=== PATIENT | female | born 1990 ===

== ENCOUNTER 2016-09-12 21:12 | Emergency (ER) | payer MEDICAID ==
[2016-09-12 21:18] VITALS: BP 145/92; PULSE 110; RESP 21; TEMP 99.5; O2SAT 100
[2016-09-12] MEDS ORDERED: Dexamethasone 4 mg/1 ml IM STA (21:35)
[2016-09-12] MEDS ORDERED: Penicillin G Benzathine 1.2 Mill Unit/2 ml Syr IM ONE (21:36)
--- NOTE | 2016-09-12 21:38 | ED PDOC ---
HPI: CCC, URI, Sore Throat Time Seen by Provider: 09/12/16 21:22 Chief Complaint (Nursing): ENT Problem Chief Complaint (Provider): sore throat History Per: Patient History/Exam Limitations: no limitations Have you had recent travel within the past 21 days to any of the following countries: [place], [place], [place] or [place]?: No Onset/Duration Of Symptoms: Days (x 4) Current Symptoms Are (Timing): Still Present Location Of Pain: Throat, Headache Sick Contacts (Context): None Associated Symptoms: Fever, Chills, Sore Throat. denies: Cough Additional Complaint(s): Jelena Burroughs is a 26 year old female, with no previous medical history who presents to the ED with complaints of a sore throat ongoing for 3 days. Pt reports associated symptoms of fever, headache and feeling unable to breath. Pt reports to developing throat swelling yesterday. Pt denies coughing or sick contact. PMD: none provided Past Medical History Reviewed: Historical Data, Nursing Documentation, Vital Signs Vital Signs: Last Vital Signs Temp 99.5 F 09/12/16 21:14 Pulse 110 H 09/12/16 21:14 Resp 21 09/12/16 21:14 BP 145/92 H 09/12/16 21:14 Pulse Ox 100 09/12/16 21:41 - Medical History PMH: No Chronic Diseases - Family History Family History: States: Unknown Family Hx - Allergies Allergies/Adverse Reactions: Allergies Allergy/AdvReac Type Severity Reaction Status Date / Time No Known Allergies Allergy Verified 09/12/16 21:14 Review of Systems ROS Statement: Except As Marked, All Systems Reviewed And Found Negative Constitutional: Positive for: Fever, Chills ENT: Positive for: Throat Pain, Throat Swelling Respiratory: Positive for: Shortness of Breath. Negative for: Cough Physical Exam - Reviewed Nursing Documentation Reviewed: Yes Vital Signs Reviewed: Yes - Physical Exam Appears: Positive for: Well, Non-toxic, No Acute Distress Head Exam: Positive for: ATRAUMATIC, NORMAL INSPECTION, NORMOCEPHALIC ENT: Positive for: Tonsillar Exudate (bilateral ), Tonsillar Swelling ( bilateral ), Other (uvula swellng ) Cardiovascular/Chest: Positive for: Regular Rate, Rhythm Respiratory: Positive for: CNT, Normal Breath Sounds Neurologic/Psych: Positive for: Alert, Oriented - ECG O2 Sat by Pulse Oximetry: 100 (RA) Pulse Ox Interpretation: Normal Medical Decision Making Medical Decision Making: Initial Impression: Strep throat Initial Plan: * decadrone * bicillin l-a inj * reevaluation will be d/c with instructions to provide self with supportive care and f/u with pmd. Scribe Attestation: Documented by Essie Page, acting as a scribe for Leslye Reinoso PA-C. Provider Scribe Attestation: All medical record entries made by the Scribe were at my direction and personally dictated by me. I have reviewed the chart and agree that the record accurately reflects my personal performance of the history, physical exam, medical decision making, and the department course for this patient. I have also personally directed, reviewed, and agree with the discharge instructions and disposition. Disposition - Clinical Impression Clinical Impression: Streptococcal sore throat - Patient ED Disposition Is Patient to be Admitted: No Counseled Patient/Family Regarding: Diagnosis, Need For Followup - Disposition Disposition: Routine/Home Disposition Time: 22:01 Condition: STABLE Instructions: Strep Throat in Children (ED) Forms: [facility] ED School/Work Excuse
== END 2016-09-12 22:22 | disposition home or self-care (01) ==
LOC: H.ER 21:12
DX: J02.0 Streptococcal pharyngitis (principal); R50.9 Fever, unspecified; R51 Headache